=== PATIENT | female | born 1995 | race African-American/Black ===

== ENCOUNTER 2020-11-05 06:16 | Inpatient (IN) | payer OTHER ==
[2020-11-05] VITALS (26 sets, daily range): BP systolic 112–141; BP diastolic 67–92
[~2020-11-05] VITALS: Ht 167.6 cm; Wt 79.4 kg
[2020-11-05] MEDS ORDERED: PRENTAB9 PO (06:37)
[2020-11-05] MEDS ORDERED: OXYTOCIN DRIP 30 UNITS in IV 1 EA IV PRN (07:10)
--- NOTE | 2020-11-05 07:22 | HPEPDOC ---
Obstetrical History & Physical General Date of Admission History of Present Illness 25 yo at 41+1 weeks gestation by LMP of [id number] c/w 9+6 week US presented to L&D with the complaint of regular, painful contractions since 0000 and some vaginal spotting. She denies any leakage of fluid. She endorses movement. She tested positive for COVID on 23Oct2020 and would have completed 14 days of quarantine today. 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 Past Medical History Medical History Migraines with aura Surgical History: Denies/None Family History Significant Family History: No pertinent family hx Social History Marital Status: Family situation: Spouse/partner home Psychosocial History: No pertinent psych hx * Smoker: non-smoker Alcohol: Denies Drugs: denies Imunizations Tdap status: current Influenza Status: current Allergies Coded Allergies: No Known Allergies (Unverified , 11/05/20) Medications Scheduled No.137/Iron/Folic Acd ( Vitamin Tablet) 1 Each Tablet, 1 TAB PO DAILY Physical Examination Physical Examination GENERAL: Alert and oriented times three. ABDOMEN: Gravid and non-tender to touch. FETUS: Is vertex (VTX) by sterile vaginal examination (SVE). EXTREMITIES: No edema. Vital Signs/I&O Vital Signs Date Time Temp Pulse Resp B/P (MAP) Pulse Ox O2 Delivery O2 Flow Rate FiO2 11/05/20 06:27 97.5 100 18 121/77 (92) Laboratory Data Urine Culture: No Growth Pertinent Laboratoy Data Blood Type: AB+ RBC Antibody Screen: Negative HIV: Negative Hepatitis B: Negative Hepatitis C: Unknown Rapid Plasma Reagin: Nonreactive Rubella: Immune Varicella: Nonreactive Chlamydia/Gonorrhea: Negative Group B Streptococcus: Negative Quad Screen Test: Unknown Cystic Fibrosis: Negative Glucose Tolerance Test: 149 (3 hr: 150, 144, 102, 73) Anatomy Ultrasound Placenta Location: Posterior Normal Anatomy: Yes Placenta Previa: No Steroid Therapy Steroid Therapy: No Vaginal Examination Dilation: 3 cm Effacement: 70% Station: -2 Cervical Consistency: Soft Cervical Position: Middle Presentation: Cephalic presentation Position: Vertex (occiput) Assessment Heart Rate (FHR): 140 Variability: Minimal Accelerations: Positive Decelerations: None, Late (Single late decel after one contractions. Not persistent) Tocometer Contractions: Yes Frequency: regular Assessment/Plan Assessment 25 yo at 41+1 weeks gestation presented in early labor and with initial Cat II tracing. Plan Cat II tracing improved to Cat I with positional change. Admit to L&D for expectant management of labor. Will augment as clinically indicated. Apply IV fluids. GBS negative. Regular diet. Patient candidate for IV analgesia or epidural if desired. Anticipate . Labor and Delivery Counseling Vaginal / Operative vaginal delivery / C section counseling We will deliver your baby through the vagina with possible assistance of forceps or vacuum device if needed for maternal or indications. Forceps and vacuum are devices that can assist with vaginal delivery when normal pushing efforts cannot achieve delivery on their own or when delivery is needed in an emergency for baby's well-being. Medications may be required to induce or augment (help) your labor in order to achieve a vaginal delivery. An episiotomy may be required to help your baby to delivery vaginally. You may also require repair of any lac erations or tears of your vagina or vulva that are caused by delivery. In some cases, emergencies can occur that require an emergency section delivery so quickly that there may not be enough time to stop and complete consent forms for section. Understand that if this occurs, your providers will discuss the need for a section with you before they proceed with surgery. section is the delivery of your baby through an incision in your abdomen. In some situations, section may be safer to mom and baby than continuing labor and is only performed when clinically indicated. Risks of vaginal delivery include but are not limited to: Bleeding, infection, injury to the vagina, pelvic structures, injury to baby, damage to the uterus, reactions to anesthesia, uterine rupture, risk of hysterectomy for life threatening bleeding, or . Medications used to induce or augment labor may increase your risk for infection, uterine tachysystole, uterine rupture, heart rate abnormalities, need for emergency delivery or possible hysterectomy, and hemorrhage. Additional risks for use of forceps and vacuum include: increased risk of perineal and vaginal lacerations, risk of urinary or bowel incontinence, increased risk of injury to baby with bruising, scratches, hematomas on the head, or intracranial bleeding. Ms. Thomas appears to understand these risks and elects to proceed with her labor at this location. She also consents to a blood transfusion if necessary. All questions answered. DO MAGAN Thomas CHRISTOPHER J. DO November 05, 2020 07:22
[2020-11-05] MEDS: LR 1,000 ML IV SCH ×2 (08:30→16:15)
[2020-11-05 09:02] LABS: HEMATOCRIT 38.3 % (36.0-47.0); HEMOGLOBIN 12.5 g/dl (12.0-15.5); MEAN CORPUSCULAR HEMOGLOBIN 27.4 pg (27.0-33.0); MEAN CORPUSCULAR HGB CONC 32.6 g/dl (32.0-36.5); PLATELET COUNT, AUTOMATED 145 10^3/uL (150-450); RED BLOOD COUNT 4.56 10^6/uL (4.00-5.40); WHITE BLOOD COUNT 7.8 10^3/uL (4.0-10.0)
[2020-11-05] MEDS ORDERED: OXYTOCIN DRIP 30 UNITS in IV 1 EA IV SCH (10:30)
--- NOTE | 2020-11-05 15:00 | IPNPDOC ---
Obstetrical Progress Note Date of Service November 05, 2020 Subjective Pt c/o increased pressure with contractions Objective Vital Signs Date Time Temp Pulse Resp B/P (MAP) Pulse Ox O2 Delivery O2 Flow Rate FiO2 11/05/20 06:27 97.5 100 18 121/77 (92) Assessment Heart Rate (FHR): 125 Variability: Moderate Accelerations: Positive Decelerations: None Heart Rate Tracing: Category I Tocometer Contractions: Yes Frequency: every 2-5 min. (on 10mu pitocin) Duration: greater than 60 seconds Strength: palpated as moderate, resting tone palp/soft Sterile Vaginal Examination Dilation: 4 cm Effacement (%): 90% Station: -1 Cervical Consistency: Soft Cervical Position: Middle Postion/Presentation: Cephalic presentation Assessment and Plan Age: 25 : 2 Term: 0 Pre-term: 0 Abortions: 1 Livin EGA at Admission: 41 Status: Reassuring Group B Streptococcus: Negative Anticipate: Vaginal Delivery Additional Comments lr@125ml/hr, continuous efm x2, continue pitocin induction and titrate per protocol, monitor for change as indicated, consider AROM as appropriate, anticipate vaginal delivery PETER BARNES CNM November 05, 2020 15:00
[2020-11-05] MEDS ORDERED: PROMETHAZINE INJ 25 MG/ML VIAL (J2550) IV ONE (16:00)
[2020-11-05] MEDS ORDERED: BUTORPHANOL 2 MG/ML INJ (J0595) IV ONE (16:00)
[2020-11-05] MEDS ORDERED: OXYTOCIN INJ 10 UNITS/ML VIAL (J2590) As Ordered ONE (19:44)
[2020-11-05] MEDS ORDERED: FENTANYL 2MCG/ML ROPIVACAINE 0.2% IN 0.9% NACL 100ML IVBAG As Ordered ONE (23:17)
[2020-11-05] MEDS ORDERED: ePHEDrine SULFATE 25 MG/5 ML(5MG/ML) SYRINGE As Ordered ONE (23:56)
[2020-11-06] VITALS (29 sets, daily range): BP systolic 104–136; BP diastolic 55–77
[2020-11-06] MEDS: ePHEDrine SULFATE 25 MG/5 ML(5MG/ML) SYRINGE IV PRN ×2 (00:09→01:22)
[2020-11-06] MEDS ORDERED: diphenhydrAMINE 50MG/ML VIAL (J1200) IV PRN ×2 (00:10→06:51)
[2020-11-06] MEDS ORDERED: REFRIGERATOR IV KEYS XX PRN (00:10)
[2020-11-06] MEDS: LR 1,000 ML IV SCH ×3 (00:10→15:35)
[2020-11-06] MEDS ORDERED: ONDANSETRON 4MG/2ML VIAL IV PRN ×2 (00:10→06:51)
[2020-11-06] MEDS ORDERED: EPIDURAL COMMENT XX SCH (00:10)
[2020-11-06] MEDS ORDERED: FENTANYL/ROPIVACAINE/NACL BAG 100 ML EPIDURAL SCH (00:10)
[2020-11-06] MEDS ORDERED: LACTATED RINGER'S 1000 ML IV PRN (00:10)
[2020-11-06] MEDS ORDERED: NALOXONE INJ 0.4MG/1ML VIAL (J2310 PER 1MG) IV PRN ×3 (00:10→06:51)
[2020-11-06] MEDS ORDERED: EPIDURAL/PCA KEYS XX PRN (00:10)
--- NOTE | 2020-11-06 02:05 | IPNPDOC ---
Text Note Date of Service The patient was seen on 11/06/20. NOTE 11/05/20 evaluation progress 2100 am evaluation re progres 3 hours since last check by provider patient was 5 cm membranes were swept. on evaluation still 5 cm -3 station not well applied to cervix. Pitocin at 10 units catagory 1 strip. Patient requested iv pain medication . will reassess again after patient has appropriate pain contro; VS,Fishbone, I+O VS, Fishbone, I+O Laboratory Tests 11/05/20 08:37 Vital Signs Date Time Temp Pulse Resp B/P (MAP) Pulse Ox O2 Delivery O2 Flow Rate FiO2 11/06/20 01:40 99.2 11/06/20 01:28 117 130/68 (88) 11/05/20 18:55 16 I&O- Last 24 Hours up to 6 AM 11/06/20 06:00 Intake Total 1320 ml Output Total 400 ml Balance 920 ml David Cunningham MD November 06, 2020 02:05
--- NOTE | 2020-11-06 02:09 | IPNPDOC ---
Text Note Date of Service The patient was seen on 11/06/20. NOTE 11/05/20 reevaluation cervix 7-8 cm -3 station not well applied discussed arom and gave option of epidural. Agreed to arom clear fluid . patient had 1 late deceleration with recovery. Safe to proceed. VS,Fishbone, I+O VS, Fishbone, I+O Laboratory Tests 11/05/20 08:37 Vital Signs Date Time Temp Pulse Resp B/P (MAP) Pulse Ox O2 Delivery O2 Flow Rate FiO2 11/06/20 01:40 99.2 11/06/20 01:28 117 130/68 (88) 11/05/20 18:55 16 I&O- Last 24 Hours up to 6 AM 11/06/20 06:00 Intake Total 1320 ml Output Total 400 ml Balance 920 ml David Cunningham MD November 06, 2020 02:09
--- NOTE | 2020-11-06 02:13 | IPNPDOC ---
Text Note Date of Service The patient was seen on 11/06/20. NOTE 11/06 2020 0200 am . assessment Pitocin at 20 munits overall reassuring strip had another deceleration with recovery. Pelvic exam 8 cm not well applied, -3 station clear fluid. comfortable with epidural . Will give 2 more hours if no progress will discuss alternative method of delivery Patient expressed understanding VS,Fishbone, I+O VS, Fishbone, I+O Laboratory Tests 11/05/20 08:37 Vital Signs Date Time Temp Pulse Resp B/P (MAP) Pulse Ox O2 Delivery O2 Flow Rate FiO2 11/06/20 01:40 99.2 11/06/20 01:28 117 130/68 (88) 11/05/20 18:55 16 I&O- Last 24 Hours up to 6 AM 11/06/20 06:00 Intake Total 1320 ml Output Total 400 ml Balance 920 ml David Cunningham MD November 06, 2020 02:13
[2020-11-06] MEDS ORDERED: BUPIVACAINE HCL 0.25% 10ML VIAL SC SCH (05:10)
[2020-11-06] MEDS ORDERED: ACETAMINOPHEN 650 MG SUPP PR SCH (05:10)
[2020-11-06] MEDS ORDERED: BICITRA 30ML SOLN UDC PO ONE (05:10)
[2020-11-06] MEDS ORDERED: AZITHROMYCIN INJ 500 MG, VIAL MATE ADAPTER 1 EACH in NS 250 ML IV ONE (05:10)
[2020-11-06] MEDS ORDERED: ceFAZolin SOD 2 GM in IV 1 EA IV ONE (05:10)
--- NOTE | 2020-11-06 05:20 | IPNPDOC ---
Text Note Date of Service The patient was seen on 11/06/20. NOTE 11/06/20 0500 REVIEWED NO PROGRESS FAILURE TO DILATE FAILURE TO DESCEND DAYA GORY 1 STRIP, REVIEWED RISK CS RE HEMORRHAGE INFECTION PERFORATION REOPERATION REMOTE BLOOD TRANSFUSION REMOTE HYSTERECTOMY, POSSIBLE ADMISSION TO NICU EXPRESSED UNDERSTANDING NOW AWAITING ANESTHESIA NEONATOLOGY NOTIFIED VS,Dominickbone, I+O VS, Fishbone, I+O Laboratory Tests 11/05/20 08:37 Vital Signs Date Time Temp Pulse Resp B/P (MAP) Pulse Ox O2 Delivery O2 Flow Rate FiO2 11/06/20 02:49 105 108/56 (73) 11/06/20 01:40 99.2 11/05/20 18:55 16 I&O- Last 24 Hours up to 6 AM 11/06/20 06:00 Intake Total 3820 ml Output Total 400 ml Balance 3420 ml David Cunningham MD November 06, 2020 05:20
[2020-11-06] MEDS ORDERED: VIAL MATE ADAPTER XX ONE (05:28)
[2020-11-06] MEDS ORDERED: dexameTHASONE 4 MG/ML 1ML VIAL (J1100 PER 1MG) As Ordered ONE (05:43)
[2020-11-06] MEDS ORDERED: OXYTOCIN INJ 10 UNITS/ML VIAL (J2590) As Ordered ONE (05:43)
[2020-11-06] MEDS ORDERED: fentaNYL 100 MCG/2 ML INJECTION (J3010) As Ordered ONE (05:43)
[2020-11-06] MEDS ORDERED: MORPHINE PRES-FREE INJ 10 MG/10 ML VIAL (J2274) As Ordered ONE (05:43)
[2020-11-06] MEDS ORDERED: ONDANSETRON 4MG/2ML VIAL As Ordered ONE (05:43)
[2020-11-06] MEDS ORDERED: LIDOCAINE PRES-FREE 2% 10ML AMP As Ordered ONE (05:51)
[2020-11-06] MEDS ORDERED: PHENYLephrine 500MCG 5ML (100MCG/ML) SYRINGE As Ordered ONE (06:11)
[2020-11-06] MEDS ORDERED: BUPIVACAINE HCL 0.25% 30ML VIAL As Ordered ONE (06:13)
[2020-11-06 06:36] LABS: CORD GAS ABE A -10.7; CORD GAS HCO3 A 19.4 MEQ/L; CORD GAS O2 SAT A 15.8 %; CORD GAS PCO2 A 62.9 mmHg; CORD GAS PH A 7.108 UNITS; CORD GAS PO2 A 13.7 mmHg; CORD GAS SBC A 14.5 MEQ/L; CORD GAS TCO2 A 21.4 MEQ/L
[2020-11-06 06:37] LABS: CORD GAS ABE V -10.7; CORD GAS HCO3 V 18.8 MEQ/L; CORD GAS O2 SAT V 37.4 %; CORD GAS PCO2 V 56.9 mmHg; CORD GAS PH V 7.138 UNITS; CORD GAS PO2 V 22.4 mmHg; CORD GAS SBC V 14.9 MEQ/L; CORD GAS TCO2 V 20.6 MEQ/L
[2020-11-06] MEDS ORDERED: NALBUPHINE HCL 10 MG/ML AMP (J2300) IV PRN ×2 (06:51→08:15)
[2020-11-06] MEDS ORDERED: METOCLOPRAMIDE INJ 10MG/2ML VIAL (J2765 PER 1) IV PRN (06:51)
[2020-11-06] MEDS ORDERED: SIMETHICONE 80MG CHEW TAB PO PRN (07:35)
[2020-11-06] MEDS ORDERED: BUPIVACAINE HCL 0.25% 10ML VIAL INFIL ONE (07:35)
[2020-11-06] MEDS ORDERED: METHYLERGONOVINE MALEATE 0.2 MG TAB PO PRN (07:35)
[2020-11-06] MEDS ORDERED: ANUSOL HC CREAM 30GM TOP PRN (07:35)
[2020-11-06] MEDS ORDERED: OXYTOCIN INJ 10 UNITS/ML VIAL (J2590) IV ONE (07:35)
[2020-11-06] MEDS ORDERED: MEASLES,MUMPS,RUBELLA VACCINE INJ (MMR-II) (90707) SC SCH (07:35)
[2020-11-06] MEDS ORDERED: RHOGAM 300 MCG (1500 IU) INJ (J2790) IM SCH (07:35)
[2020-11-06] MEDS ORDERED: DOCUSATE SODIUM 100MG CAPSULE PO PRN (07:35)
[2020-11-06] MEDS ORDERED: ACETAMINOPHEN 650 MG SUPP PR PRN (07:35)
[2020-11-06] MEDS ORDERED: MOM 30ML SUSPENSION UDC PO PRN (07:35)
[2020-11-06] MEDS ORDERED: OXYTOCIN DRIP 30 UNITS in IV 1 EA IV ONE (07:35)
[2020-11-06] MEDS ORDERED: fentaNYL 100 MCG/2 ML INJECTION (J3010) IV PRN (08:15)
[2020-11-06] MEDS ORDERED: MEPERIDINE INJ 25 MG/ML VIAL (J2175) IV PRN (08:15)
[2020-11-06] MEDS ORDERED: HYDROMORPHONE HCL 0.5 MG/ 0.5 ML SYRINGE (J1170 PER 1) IV PRN (08:15)
[2020-11-06] MEDS ORDERED: oxyCODONE 5MG TAB PO PRN (08:15)
[2020-11-06] MEDS: PRENATAL VITAMINS CHEWABLE TABLET PO SCH (09:00)
--- NOTE | 2020-11-06 11:32 | RO ---
OPERATIVE NOTE DATE OF OPERATION: 11/06/2020 PREOPERATIVE DIAGNOSIS: Primary section, failure to descend, failure to dilate, POP, meconium stained lochia. POSTOPERATIVE DIAGNOSIS: Failure to descend, failure to dilate, POP, meconium staining. OPERATION PROPOSED: Primary section. PROCEDURE PERFORMED: Primary section. SURGEON: David Cunningham MD GENERAL DOC: Petrona Bonilla MD for extraction, retraction and visualization without which the procedure could not be completed. ANESTHESIA: Epidural plus local anesthetic for intraperitoneal procedures. ESTIMATED BLOOD LOSS: 300 mL. DESCRIPTION OF PROCEDURE: After adequate time out, prep and drape in supine position, Greene catheter in the bladder draining clear urine, Acetaminophen suppository 1300 mg per rectum, appropriate antibiotics preoperatively, Pfannenstiel incision was made 2 fingersbreadth above the symphysis pubis, passing through abdominal layers, securing hemostasis. Opening the peritoneal cavity the bladder was reflected down well anteriorly. A Mobius was placed without difficulty. A low transverse incision was made into the uterus and we noticed there was meconium stained lochia light. The head was deeply engaged in the pelvis in the POP position and we were able to break the suction and extract live female infant weighing 7 pounds 4 ounces, 3280 gm, Apgars 7 and 9 at one and five minutes respectively. Arterial pH 7.10, base excess -10.7, venous pH 7.13, base excess -10.7.The placenta delivery by manual exploration therefore. Membranes and tissues were removed. The membranes were stained with meconium. The uterus contracted well down under Pitocin. The lower segment was oversewn in the usual fashion in two layers imbricating the second layer. We then re-peritonealized that area. With instrument and pad count correct, both gutters appeared to be normal, ovaries and tubes appeared to be intact. The Mobius was removed. The abdomen was then closed with running stitch for peritoneum, same for fascia, interrupted for subcu, Marcaine 0.25% 10 mL to the skin and subcuticular for the skin. Optifoam dressing was placed. Uterus expressed minimal amount of clots. The patient was sent to recovery in good condition.
[2020-11-06] MEDS: KETOROLAC 30 MG/ML 1ML VIAL IV SCH ×2 (13:22→19:33)
[2020-11-07] VITALS (7 sets, daily range): BP systolic 118–129; BP diastolic 58–70
[2020-11-07] MEDS: KETOROLAC 30 MG/ML 1ML VIAL IV SCH (01:41)
[2020-11-07] MEDS: ACETAMINOPHEN 500 MG TAB PO PRN ×2 (06:03→06:35)
[2020-11-07] MEDS: PERCOCET 5MG/325MG TAB PO PRN (08:06)
[2020-11-07] MEDS: PRENATAL VITAMINS CHEWABLE TABLET PO SCH (08:06)
[2020-11-07 09:16] LABS: HEMATOCRIT 26.9 % (36.0-47.0); HEMOGLOBIN 8.9 g/dl (12.0-15.5); MEAN CORPUSCULAR HEMOGLOBIN 28.1 pg (27.0-33.0); MEAN CORPUSCULAR HGB CONC 33.1 g/dl (32.0-36.5); MEAN CORPUSCULAR VOLUME 84.9 fl (80.0-96.0); PLATELET COUNT, AUTOMATED 125 10^3/uL (150-450); RED BLOOD COUNT 3.17 10^6/uL (4.00-5.40); WHITE BLOOD COUNT 16.3 10^3/uL (4.0-10.0)
--- NOTE | 2020-11-07 09:33 | IPNPDOC ---
Progress Note Date of Service: November 07, 2020 Progress Note Ms. Thomas is a 25 yo G2 now P1 who underwent an uncomplicated PLTCS yesterday morning for arrest of dilation. She reports feeling well today, just sore. She has been ambulatory and is tolerating a regular diet. Pain is well controlled. Lochia is minimal. Vitals - VSS, afebrile, normotensive, nontachycardic General - AAOX3, sitting up in bed, NAD Abdomen - Fundus firm at U-2. No fundal tenderness. Optifoam dressing in place over incision with minimal strikethrough. Minimal tenderness to palpation. Extremities - Minimal edema UO - adequate Labs: Pre op H/H 12.5/38.3 ---> this AM H/H 8.9/26.9 Ms. Thomas is doing well and is making an appropriate postoperative / recovery. Encourage ambulation today. Abdominal binder. Encourage IS use. Continue routine postoperative / care. Likely discharge home tomorrow if meeting all criteria. All patient questions answered. Terrence العراقي DO VS, I&O, 24H, Fishbone Vital Signs/I&O Vital Signs Date Time Temp Pulse Resp B/P (MAP) Pulse Ox O2 Delivery O2 Flow Rate FiO2 11/07/20 08:06 18 11/07/20 06:14 98.6 100 127/65 (85) 99 Room Air I&O- Last 24 Hours up to 6 AM 11/07/20 06:00 Intake Total 3139 ml Output Total 1675 ml Balance 1464 ml Laboratory Data 24H LABS Laboratory Tests 2 11/07/20 08:53: Nucleated Red Blood Cells % (auto) 0.0 CBC/BMP Laboratory Tests 11/07/20 08:53 TERRENCE العراقي DO November 07, 2020 09:33
[2020-11-07] MEDS: IBUPROFEN 600MG TAB PO PRN (20:08)
[2020-11-08 02:00] VITALS: BP 118/66
[2020-11-08] MEDS: IBUPROFEN 600MG TAB PO PRN (04:07)
[2020-11-08 06:00] VITALS: BP 136/83
[2020-11-08] MEDS ORDERED: DOK1CAP7 PO (07:44)
[2020-11-08] MEDS ORDERED: IBUP-1022 PO (07:44)
[2020-11-08] MEDS ORDERED: PERCOCET PO (07:44)
--- NOTE | 2020-11-08 07:49 | DS.PDOC ---
Discharge Summary General Date of Admission November 05, 2020 at 07:19 Date of Discharge November 08, 2020 Discharge Summary HOSPITAL COURSE: Ms. Thomas is a 25 yo G2 now P1 who underwent an uncomplicated PLTCS on 06Nov2020 for arrest of dilation after being admitted for early labor. Her course was unremarkable. On her day of discharge she met all appropriate discharge criteria. She was ambulating without dizziness, SOB, or fatigue, voiding on her own, tolerating a regular diet, passing gas, and had minimal lochia. DISCHARGE MEDICATIONS: Please see below. ALLERGIES: Please see below. PHYSICAL EXAMINATION ON DISCHARGE: VITAL SIGNS: Please see below. GENERAL: AAOX3, NAD ABDOMINAL EXAMINATION: Fundus firm at U-2. No fundal tenderness. Optifoam dressing in place over incision. Well appearing. No tenderness to palpation at incision. EXTREMITIES: Mild edema, much improved. PSYCHIATRIC EXAMINATION: Affect appropriate LABORATORY DATA: Please see below. ACTIVITY: Pelvic rest for 6 weeks. No heavy lifting for 6 weeks DIET: Regular DISCHARGE PLAN: Discharge home DISPOSITION: Discharge home on 08Nov2020 DISCHARGE INSTRUCTIONS: 1. Nothing in the vagina for 6 weeks 2. No heavy lifting for 6 weeks ITEMS TO FOLLOWUP ON ON OUTPATIENT: 1. 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 Call to schedule a visit for 6 weeks post delivery DISCHARGE CONDITION: Stable. TIME SPENT ON DISCHARGE: Greater than 20 minutes. Terrence العراقي DO Vital Signs/I&Os Vital Signs Date Time Temp Pulse Resp B/P (MAP) Pulse Ox O2 Delivery O2 Flow Rate FiO2 11/08/20 06:00 99.6 92 18 136/83 (100) 100 Room Air Laboratory Data Labs 24H Laboratory Tests 2 11/07/20 08:53: Nucleated Red Blood Cells % (auto) 0.0 CBC/BMP Laboratory Tests 11/07/20 08:53 Discharge Medications Scheduled No.137/Iron/Folic Acd ( Vitamin Tablet) 1 Each Tablet, 1 TAB PO DAILY, (Reported) Scheduled PRN Docusate Sodium (Dok) 100 Mg Capsule, 100 MG PO QHSP PRN for CONSTIPATION Ibuprofen (Ibuprofen) 600 Mg Tablet, 600 MG PO Q6HP PRN for PAIN LEVEL 1-5 Oxycodone/Acetaminophen (Oxycodone-Acetaminophen 5-325) 1 Each Tablet, 1 TAB PO Q4H PRN for MILD/MODERATE PAIN (PS 1-7) Allergies Coded Allergies: No Known Allergies (Unverified , 11/05/20) TERRENCE العراقي DO November 08, 2020 07:49
[2020-11-08] MEDS: PRENATAL VITAMINS CHEWABLE TABLET PO SCH (08:16)
[2020-11-08 09:43] VITALS: BP 123/74
[2020-11-08] MEDS: PERCOCET 5MG/325MG TAB PO PRN (11:29)
== END 2020-11-08 15:00 | disposition home or self-care (01) | DRG 773 ==
LOC: M LDO 06:16 → M LDI 07:19 → M OBS 11-06 09:11
PROVIDERS: ADMIT Obstetrics & Gynecology; ATTEND Obstetrics & Gynecology
PROC: 10D00Z1 Extraction of Products of Conception, Low, Open Approach (ICD-10-PCS; principal; 2020-11-06 06:00)
DX: O32.4XX0 Maternal care for high head at term, not applicable or unspecified (principal); Z37.0 Single live birth; Z3A.41 41 weeks gestation of pregnancy; O48.0 Post-term pregnancy; O62.0 Primary inadequate contractions; O77.0 Labor and delivery complicated by meconium in amniotic fluid